=== PATIENT | female | born 1950 | race Hispanic/Latino ===

== ENCOUNTER 2017-04-16 09:21 | Emergency (ER) | payer MEDICARE, OTHER ==
[~2017-04-16] VITALS: Ht 152.4 cm; Wt 65.9 kg
[2017-04-16 09:25] VITALS: BP 166/87; PULSE 114; RESP 18; O2SAT 98
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
[2017-04-16] MEDS ORDERED: HYDROcodone-APAP 5-325 mg Tablet PO ONE (10:35)
[2017-04-16] MEDS ORDERED: HYDR-4003 PO (10:50)
[2017-04-16 11:48] VITALS: BP 126/77; PULSE 100; RESP 20; O2SAT 97
--- NOTE | 2017-04-16 12:33 | DRSVH ---
PROCEDURE: X-RAY LEFT SHOULDER, MINIMUM TWO VIEWS ([id number]) INDICATIONS: Left shoulder pain. TECHNIQUE: 3 views of the shoulder were acquired. COMPARISON: None. FINDINGS: Bones: No fractures or dislocations. No suspicious bony lesions. Visualized ribs appear intact. T here is mild acromial clavicular and glenohumeral joint degeneration. Soft tissues: No suspicious soft tissue calcifications. IMPRESSION: No fractures. Mild degenerative joint disease. Dictated by: Pennie Taylor M.D. on 04/16/2017 at 12:30 Approved by: Pennie Talyor M.D. on 04/16/2017 at 12:31
== END 2017-04-16 11:48 | disposition home or self-care (01) ==
LOC: SED 09:21
DX: S40.012A Contusion of left shoulder, initial encounter (principal); I10 Essential (primary) hypertension; Y04.8XXA Assault by other bodily force, initial encounter; Y93.9 Activity, unspecified; Y92.009 Unspecified place in unspecified non-institutional (private) residence as the place of occurrence of the external cause; Y99.8 Other external cause status; M54.2 Cervicalgia

== ENCOUNTER 2017-04-20 08:23 | Inpatient (IN) | payer MEDICARE, OTHER ==
[2017-04-20] VITALS (7 sets, daily range): BP systolic 129–204; BP diastolic 52–85; PULSE 74–110; RESP 16–20; O2SAT 96–100
[~2017-04-20] VITALS: Ht 147.3 cm; Wt 64.1 kg
[~2017-04-20 08:23] MED LIST: HYDR-4003 PO
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
--- NOTE | 2017-04-20 08:57 | DRSVH ---
PROCEDURE: X-RAY CHEST ONE VIEW, PORTABLE ([id number]) INDICATIONS: Chest pain TECHNIQUE: One view of the chest was acquired. COMPARISON: [facility], , CHEST 1VW (PORTABLE), 03/04/2015, 10:11. FINDINGS: Surgical changes and devices: None. Lungs and pleura: No pleural effusions or pneumothorax. Lungs are clear. There is hyperinflation o f the lungs and flattening of the diaphragms suggestive of COPD. Mediastinum: Mediastinal contours appear normal. Heart size is normal. Bones and chest wall: No suspicious bony lesions. Overlying soft tissues appear unremarkable. IMPRESSION: 1. No acute cardiopulmonary disease. Dictated by: Bebeto Cohen M.D. on 04/20/2017 at 8:50 Approved by: Bebeto Cohen M.D. on 04/20/2017 at 8:56
[2017-04-20 09:07] LABS: BASOPHILS % (AUTO) 0.2 % (0-3); EOSINOPHILS % (AUTO) 3.7 % (0-5); MONOCYTES % (AUTO) 5.8 % (4-12); Mean Corpuscular Hemoglobin 30.7 pg (27.0-35.0); Mean Corpuscular Volume 93.9 fL (81-100); NEUTROPHILS % (AUTO) 66.8 % (40-74); Platelet Count 299 bil/L (150-400)
[2017-04-20] MEDS: Ondansetron 2 mg/mL 2 mL Inj IVPUSH PRN ×2 (09:12→18:04)
[2017-04-20 09:46] LABS: Magnesium 2.2 mg/dL (1.6-2.6)
[2017-04-20 09:53] LABS: TROPONIN T < 0.010 ug/L (0.0-0.011)
--- NOTE | 2017-04-20 10:23 | DRSVH ---
PROCEDURE: CT BRAIN WITHOUT CONTRAST ([id number]) INDICATIONS: left arm numbness, weakness TECHNIQUE: Noncontrast 4.5 mm thick angled axial sections acquired from the foramen magnum to the vertex, with c oronal reformats. COMPARISON: None. FINDINGS: Brain: There is no acute intra-axial or extra-axial hemorrhage. No extra-axial fluid collection is i dentified. There is no midline shift or mass effect. The orbits are grossly unremarkable. There is a moderate-sized area of low attenuation/encephalomalacia involving the right inferior front al lobe near the sylvian fissure, which has a chronic appearance and probably represents an old area of ischemia. Additional subtle areas of low attenuation within the periventricular and deep white ma tter of the brain may be present. The ventricles and cortical sulci are age-appropriate. Bones: Calvarium and visualized facial bones are grossly intact. The imaged paranasal sinuses and m astoid air cells are clear. IMPRESSION: 1. No acute intracranial hemorrhage. 2. Low attenuation within the inferior right frontal lobe is felt to represent encephalomalacia from prior ischemia. If there is high clinical concern for acute ischemia, MRI would be helpful for bett er evaluation. Dictated by: Kevin Marrufo M.D. on 04/20/2017 at 9:19 Approved by: Kevin Marrufo M.D. on 04/20/2017 at 9:21
[2017-04-20] MEDS ORDERED: NAPR375T4 PO (11:10)
[2017-04-20] MEDS ORDERED: CALC-1021 PO (11:10)
[2017-04-20] MEDS ORDERED: Alum-Mag Hydrox-Simeth 30 mL Suspension PO PRN (11:40)
[2017-04-20] MEDS ORDERED: Ondansetron 2 mg/mL 2 mL Inj IVPUSH PRN (11:40)
--- NOTE | 2017-04-20 12:21 | NUR ---
admit pt denies CP/pain/distress. pt speaks Burkinan but is accompanied by several family members who speak Tamazight. I explained that at the hospital we use an location worker service and they agree to policy. Tele applied, oriented to room and call light.
[2017-04-20] MEDS ORDERED: Polyethylene Glycol (PEG) 17 Gm Powder PO PRN (13:05)
[2017-04-20] MEDS ORDERED: Labetalol 5 mg/mL 4 mL Inj IVPUSH PRN (13:05)
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
[2017-04-20] MEDS ORDERED: Codeine-APAP 30-300 mg Tablet PO PRN (13:45)
--- NOTE | 2017-04-20 14:21 | NUR ---
MRI pt off the floor for an MRI
--- NOTE | 2017-04-20 15:12 | NUR ---
Pt. at MRI. Will try again to evaluate when staffing/scheduling allows. Per RN, mobility is steady and left upper extremity seems grossly intact with regard to strength. Nael Peres, OTR/L
--- NOTE | 2017-04-20 15:18 | NUR ---
code stroke pt back from MRI called code stroke 1515 glucose 84 BP 161/82 pulse ox 94% temp 98.2 pt out of room to CT @ 1518 Dr Dixon, Natali Chaney RN, Daxa Spears assisted during code. Hoa Campbell RN with patient to ER.
--- NOTE | 2017-04-20 15:26 | NUR ---
report called to Hoa Campbell-to accompany patient to ER Addendum: 04/20/17 at 1533 by OCHOA TROTTER RN pt transferred to [facility] 2013 with Aida Millard RN.
--- NOTE | 2017-04-20 15:38 | NUR ---
Arrival to room 2013 Patient escorted to room 2013. 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 NIH 33 at time of arrival to unit. Aphasic. Unable to follow verbal commands. Mild facial droop. Deviated gaze to left. 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 Hypertensive, 168/79. Afebrile. Blood glucose, 81. Will continue to monitor.
--- NOTE | 2017-04-20 15:50 | DRSVH ---
PROCEDURE: CT BRAIN (TPA) ([id number]) INDICATIONS: INCREASED WEAKNESS/UNRESPONSIVE TECHNIQUE: Noncontrast 4.5 mm thick angled axial sections acquired from the foramen magnum to the vertex, with c oronal reformats. COMPARISON: [facility], CT, CT BRAIN WO CON, 04/20/2017, 9:58. [facility], M R, MR STROKE PROTOCOL, 04/20/2017, 14:37. FINDINGS: Image quality: Limited by patient motion artifact. CSF spaces: Basal cisterns are patent. No extra-axial fluid collections. The ventricles are symmet celeste in size and shape. Brain: No intracranial bleeds or masses. There is cerebral volume loss for age, with resultant vent ricular and sulcal prominence. There are minimal periventricular and deep white matter chronic small vessel ischemic changes. Old right frontal infarct is stable compared to prior examinations. There i s intracranial internal carotid artery atherosclerosis. Skull and face: Calvarium and visualized facial bones appear intact, without suspicious lesions. Sinuses: Visualized sinuses and mastoids are clear. IMPRESSION: 1. No acute intracranial disease process. 2. No intracranial hemorrhage. 3. Old right frontal infarct stable compared to prior examinations. 4. Dr. Jackelin Dixon paged with findings on 04/20/17 at 1533 hrs. This study fulfills neurological imaging criteria for inclusion or exclusion of acute stroke therapie s based on available published neurological guidelines. Dictated by: Robyn Vaughan MD, PhD on 04/20/2017 at 15:35 Approved by: Robyn Vaughan MD, PhD on 04/20/2017 at 15:48
[2017-04-20 15:51] LABS: INR 0.93 ratio
--- NOTE | 2017-04-20 15:52 | DRSVH ---
PROCEDURE: MRI STROKE PROTOCOL ([id number]) Pre- and post-contrast brain MRI, non-contrast brain MR angiogram, pre- and postcontrast neck MR gabriel ogram INDICATIONS: CT scan evidence of subacute stroke TECHNIQUE: Brain: Noncontrast axial T1 spin echo, axial T2 fast spin echo, sagittal and axial FLAIR, coronal T2 fast spin echo, axial gradient echo, axial diffusion and ADC through the brain. After the administr ation of contrast, axial 3D VIBE of the cranial vasculature and brain. Brain MRA: Non-contrast 3-D time of flight MR angiogram, with multiple lmmnsbp-eemkfluhn-dscwenfkbo (MIP) reformats performed. Neck MRA: Axial and sagittal TruFISP through the neck. Coronal dynamic MR angiogram during administ ration of contrast in the arterial and venous phases, with 3-dimenstional bybnmfj-jodssqnas-lykrurlod n (MIP) reformats constructed from subtraction images. COMPARISON: , CT, BRAIN (TPA), 04/20/2017, 15:25. , CT, CT BRAIN WO CON, 04/20/2017, 9:58. FINDINGS: Image quality: Excellent. BRAIN: The ventricular system and cortical sulci demonstrate minimal to mild atrophy, consistent for the pat ient's stated age. There are minimal to mild areas of increased T2/FLAIR signal intensity within the periventricular and subcortical white matter. There is no acute intra-or extra axial fluid collectio n. No acute hemorrhage, mass lesion or midline shift. Brainstem is unremarkable. There are no areas o f restricted diffusion. Right frontal encephalomalacia is present consistent with previous ischemia. Globes are symmetrical. Sinuses are aerated. Osseous structures are intact. BRAIN MR ANGIOGRAM: The posterior circulation demonstrates a vertebral artery codominance. Basilar artery and posterior c erebral arteries demonstrate no areas of hemodynamically significant stenosis, vascular occlusion or aneurysmal dilation. Posterior communicating arteries are within normal limits. The anterior circulation, including the bilateral anterior and left middle cerebral arteries, as well as internal carotid arteries demonstrates no areas of hemodynamically significant stenosis, vascular occlusion or aneurysmal dilation. There is short segment, high grade stenosis, greater than 80% vs o cclusion, at the right M1/M2 segment of the middle cerebral artery. 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 NECK MR ANGIOGRAM: The origins of the left and right common, internal and external carotid arteries demonstrate no areas of hemodynamically significant stenosis, vascular occlusion or aneurysmal dilation. Origins of the l eft and right vertebral arteries demonstrate no areas of hemodynamically significant stenosis, vascul ar occlusion or aneurysmal dilation. Aortic arch demonstrates conventional anatomy. Limited, visualiz ed portions subclavian vasculature are unremarkable. IMPRESSION: 1. No acute intracranial process. No changes of acute ischemia. 2. Minimal to mild atrophy and chronic microvascular ischemic changes. 3. Short segment high-grade stenosis versus occlusion at the right M1/M2 segment of the middle cerebr al artery. It is noted that there is a focus of encephalomalacia represent old ischemia within the ri ght frontal lobe. 4. No areas of hemodynamically significant stenosis, vascular occlusion or aneurysmal dilation within the posterior circulation. 5. No areas of hemodynamically significant stenosis, vascular occlusion or aneurysmal dilation within the neck vasculature. The estimate of stenosis included in the report of the imaging study was calculated using the NASCET method Dictated by: Hazel Domínguez M.D. on 04/20/2017 at 15:41 Approved by: Hazel Domínguez M.D. on 04/20/2017 at 15:50
[2017-04-20] MEDS ORDERED: Alteplase (No Charge) 1 mg/mL Syringe IV ONE (16:14)
[2017-04-20] MEDS ORDERED: ALTEPLASE IV ONE (16:14)
--- NOTE | 2017-04-20 16:14 | NUR ---
TPA TPA bolus administered at 16:14, and TPA gtt initiated. NIH 31 prior to TPA administration. Continues in SR. Pressure stable, 142/61. Sp02 >92% on room air. Continuing with close monitoring.
--- NOTE | 2017-04-20 16:23 | PCM.DIMED ---
Discharge Instructions Date of Service Apr 20, 2017 Dates of Hospitalization Apr 20, 2017 at 11:25 Discharge Diagnosis Discharge Diagnosis Acute Stroke Activity Discharge Activity: Other (Pt is being transported, obtunded) Call your provider Call your provider for: Fever or Chills, Shortness of breath, Bleeding, Chest pain, Vomitting, Excessive diarrhea, Weakness (unilateral), Other Patient Instructions Patient Instructions Patient is currently receiving tpA dosed 6 mg bolus and 53 [address] over an hour. Dr. Ai Hankins recommended a Phenytoid loading for possible seizure after the completion of tpA. Follow-up plan As determined by [facility] Jackelin Dixon DO Apr 20, 2017 16:23
[2017-04-20] MEDS ORDERED: Heparin 5,000 Unit/mL Inj SUBQ SCH (16:30)
[2017-04-20] MEDS ORDERED: FOSPHENYTOIN IV ONE (16:30)
[2017-04-20] MEDS ORDERED: SODIUM CHLORIDE 0.9% IV ONE (16:30)
[2017-04-20] MEDS ORDERED: MGPE IV ONE (16:30)
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
[2017-04-20] MEDS ORDERED: Alteplase Dose Per Pharmacist XX ONE (17:05)
--- NOTE | 2017-04-20 17:14 | NUR ---
TPA infusion complete. NIH 31. SR per monitor technician. Pressure stable. No signs of pain. Will continue to monitor.
--- NOTE | 2017-04-20 18:21 | NUR ---
Imaging Pt escorted via bed to CT.
[2017-04-20] MEDS ORDERED: 0.9% Sodium Chloride 1,000 ML IV SCH (18:30)
--- NOTE | 2017-04-20 19:40 | DRSVH ---
PROCEDURE: CT ANGIO BRAIN NECK TPA INDICATIONS: Stroke with tPA follow up TECHNIQUE: Pre-contrast 4.5 mm thick sections acquired from the foramen magnum to the vertex. After the adminis tration of intravenous contrast, 1 mm thick sections acquired from the aortic arch through the [place]. Post-contrast 4.5 mm thick sections then re-acquired from the foramen magnum to the vert ex. 3-dimensional asjlqrs-riwqucjdz-trflucbkwt (MIP) and/or volume rendering reformats were acquired of the central intracranial vasculature and neck separately. For radiation dose reduction, the foll owing was used: automated exposure control, adjustment of mA and/or kV according to patient size. COMPARISON: None. FINDINGS: Image quality: Excellent. BRAIN: The ventricular system and cortical sulci demonstrate atrophy, consistent for the patient's stated ag e. There are areas of hypodense signal within the periventricular and subcortical white matter. Ther e is no acute intra-or extra axial fluid collection. No acute hemorrhage, mass lesion or midline shif t. Right frontal hypodensity and encephalomalacia suggestive of chronic ischemia as noted on the 04/20 MR stroke protocol. Brainstem is unremarkable. Globes are symmetrical. Sinuses are aerated. [place] structures are intact. HEAD CT ANGIOGRAPHY: The posterior circulation demonstrates a vertebral artery codominance. Basilar artery and posterior c erebral arteries demonstrate no areas of hemodynamically significant stenosis, vascular occlusion or aneurysmal dilation. Posterior communicating arteries are within normal limits. There is an unchanged appearance of high grade short segment stenosis within the right and one/M2 seg ment of the right middle cerebral artery. There is nonvisualization of contrast opacification within the M1 and proximal M2 segment of the left middle cerebral artery, new compared to brain MRI dated . NECK CT ANGIOGRAPHY: The origins of the left and right common, internal and external carotid arteries demonstrate no areas of hemodynamically significant stenosis, vascular occlusion or aneurysmal dilation. There areas of c alcification at the origins of the internal carotid arteries bilaterally without hemodynamically sign ificant stenosis. Origins of the left and right vertebral arteries demonstrate no areas of hemodynami ubaldo significant stenosis, vascular occlusion or aneurysmal dilation. Aortic arch demonstrates conve ntional anatomy. Limited, visualized portions subclavian vasculature are unremarkable. IMPRESSION: 1. No acute intracranial process. No visualized hemorrhage. 2. Minimal atrophy and chronic microvascular ischemic changes. 3. Unchanged appearance of high grade stenosis at the right M1/M2 segment. There is interval nonvisua lization of the left M1 segment and proximal aspect of the M2 segment. This was well-visualized on br n MRA dated 04/20/17 at 2:37 PM. This raises concern for interval occlusion. 4. No areas of hemodynamically significant stenosis, vascular occlusion or aneurysmal dilation within the posterior circulation. 5. No areas of hemodynamically significant stenosis, vascular occlusion or aneurysmal dilation within the neck vasculature. The above findings were discussed with Dr. Khadar Gaspar on 04/20/17 at 7:35 PM. Dictated by: Hazel Domínguez M.D. on 04/20/2017 at 19:24 Approved by: Hazel Domínguez M.D. on 04/20/2017 at 19:38
[2017-04-20 20:25] LABS: APPEARANCE,URINE CLEAR (CLEAR,HAZY); COLOR,URINE STRAW (YELLOW); OCCULT BLOOD,URINE SMALL (NEGATIVE); PH,URINE 5.5 (5.0-8.0); UROBILINOGEN,URINE NORMAL (NORMAL)
--- NOTE | 2017-04-20 22:08 | NUR ---
P) CVA Pt. spontaneously opens eyes but does not open them to command, will occasionally squeeze with L hand and move L foot but not reliably to command. R arm and leg flaccid, R facial droop, eyes do not appear to be tracking but doesn't keep them open long enough for me to be sure. I) Transferring pt. to [facility] on [place], per 's orders. E) Cont. to monitor, some family education done in Georgian and Portuguese. Called report to [facility], , Nurse Rupert.
== END 2017-04-20 22:45 | disposition short-term general hospital (02) | DRG 62 ==
LOC: SED 08:23 → MPC 11:25 → CCU 15:36
PROVIDERS: ADMIT Family Medicine; ATTEND Family Medicine
DX: I63.9 Cerebral infarction, unspecified (principal); G81.94 Hemiplegia, unspecified affecting left nondominant side; R47.01 Aphasia; M25.512 Pain in left shoulder; I10 Essential (primary) hypertension; M19.90 Unspecified osteoarthritis, unspecified site; R01.1 Cardiac murmur, unspecified